=== PATIENT | female | born 1975 | race Caucasian/White ===

== ENCOUNTER 2022-11-02 10:30 | Outpatient (RCR) | payer OTHER, SELFPAY ==
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
--- NOTE | 2022-09-22 10:28 | OPREHPOC ---
Outpatient Therapy Plan of Care This is a Multidisciplinary Plan of Care that may contain components documented by all disciplines (PT, OT, and ST.) PT Goal 1 Goal Pt will be independent in HEP Target Visit 8 PT Goal 2 Goal Pt will verbalize understanding of diagnosis and prognosis Target Visit 8 PT Problem 2 PT Problem #2 Pain PT Goal 1 Goal Pt will report greatest pain level at 5/10 or less Target Visit 10 PT Goal 2 Goal Pt will report resolution of pain Target Visit 24 PT Problem 3 PT Problem #3 Impaired Gait PT Goal 1 Goal Pt will demo equal stance time on each LE Target Visit 10 PT Goal 2 Goal Pt will demo ability to ambulate without forward flexion at trunk Target Visit 24 PT Problem 4 PT Problem #4 Impaired Strength PT Goal 1 Goal Pt will demo equal strength RLE and LLE in all tested planes Target Visit 16 PT Goal 2 Goal Pt will demo strength of 4/5 in all tested planes Target Visit 24 PT Problem 5 PT Problem #5 Impaired Range of Motion PT Goal 1 Goal Left hip Passive ROM will demo neutral alignment in 90/90 position Target Visit 10 PT Goal 2 Goal Left hip Passive ROM internal rotation in 90/90 will be 10 degrees or greater Target Visit 24
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
--- NOTE | 2022-10-12 11:43 | PCPTNOTE ---
Patient called & cancelled scheduled appointment this date due to being called into work
--- NOTE | 2022-10-14 15:05 | PCPTNOTE ---
Patient called & cancelled scheduled appointment this date due to having fallen asleep. Will reschedule this week pending clinic availability.
--- NOTE | 2022-10-15 16:41 | PTOPPROG ---
Assessment and note entered by Holly Sanchez, PT Evaluation Information Assessment Status Progress Diagnosis low back pain unspecified Therapy conditions left hip stiffness, weakness, oth abnormalities of gait and mobility, abnormal posture Onset 07/21/2022 Subjective Information Pt reports sleeping is great Feels more flexibility after last session After sitting in car has pain in the hip that works itself out with walking. Getting up and down from toilet is getting better, but still uses trash can to assist in getting up. Assessment PT Clinical Summary Pt has reports pain has improved in both lower back and hip and recently feels like she is more flexible after last session. Pt demos improved ROM , and strength as well as alignment in standing. She has met part of her goals including short term goals for pain and knowledge. She has yet to meet all goals, and while shows improving ROM of the left hip, is still less than her rigth hip. Thus patient will benefit from cont therapy to address deficits and improve pain and function. Plan of Care Interventions Electrical Stimulation,Gait Training,Hot Pack/Cold Pack,Manual Therapy,Neuro Re-education,Patient/ Caregiver Educati,Prosthetic Training,Therapeutic Activities,Therapeutic Exercise,Ultrasound PT Services Indicated Yes Treatment Frequency and Cont 1-2x weekly x 4 weeks Duration These treatments will address the objective and functional deficits as defined above. The patient will be advanced safely and appropriately in order for the patient to progress towards his/her prior level of function. Additional exercises will be introduced and as well as a comprehensive home exercise program upon discharge, if needed, ?to ensure carryover of functional gains achieved in the clinic. This treatment plan has been reviewed and agreement upon by the patient.
--- NOTE | 2022-11-04 10:48 | PCPTNOTE ---
Patient called & cancelled scheduled appointment this date due to son being home sick and us unable to attend therapy today.
--- NOTE | 2022-11-09 10:26 | PTOPDC ---
Assessment and note entered by Holly Sanchez, PT Assessment Status Discharge - Pt Not Present Diagnosis low back pain unspecified, left hip pain Onset 07/21/2022 Subjective Information Pt reports sleeping is great Feels more flexibility after last session After sitting in car has pain in the hip that works itself out with walking. Getting up and down from toilet is getting better, but still uses trash can to assist in getting up. Assessment PT Clinical Summary Pt recieved x-ray and called to discuss findings with therapist. Findings of severe osteoarthritis to left hip joint. Pt initial pain from SI joint had improved and was resovled at times however significant pain and restriction on left hip continued. Discussed options and next level of care with ortho referral. Thus patient is being discharged from therapy at this time for max benefit being met currently.
== END 2022-11-09 11:23 | disposition home or self-care (01) ==
LOC: ANHHIPT 10:30
PROVIDERS: Visit Provider Nurse Practitioner Family
DX: M54.50 Low back pain, unspecified (principal)
CPT/HCPCS: 97014; 97110; 97112; 97140; 97162; 97750; G0283

== ENCOUNTER 2023-05-07 16:14 | Inpatient (IN) | payer MEDICAID, SELFPAY ==
[2023-05-07] VITALS (34 sets, daily range): BP systolic 112–128; BP diastolic 77–87; PULSE 72–89; RESP 8–21; TEMP 35.8; O2SAT 95–100
--- NOTE | ~2023-05-07 | XR_ITS ---
EXAMINATION: XR chest 1V INDICATION: Pain after fall TECHNIQUE: AP view of the chest is obtained. COMPARISON: None available FINDINGS: The lungs are free of acute opacities. No pleural effusion or pneumothorax. The cardiomedia stinal silhouette is normal. The visualized bones and soft tissues are unremarkable. IMPRESSION: 1. No acute cardiopulmonary abnormality. Reviewed, dictated and finalized at location F.
--- NOTE | ~2023-05-07 | XR_ITS ---
XR surgery orthopedic 05/09/2023 10:35 Indication: Internal fixation of left femoral fracture Procedure: 2 4 fluoroscopic views left hip. 167 seconds fluoroscopy. Comparison: 05/07/2023 Findings: Status post internal fixation of left femoral intertrochanteric fracture with dynamic compr ession screw and intramedullary virgen. There is a single distal interlocking screw. Fracture fragments in anatomic alignment post reduction. Impression: 1: Anatomic alignment of left femoral intertrochanteric fracture status post intraoperative fixation. Reviewed, dictated and finalized at location A. Impression: 1: Anatomic alignment of left femoral intertrochanteric fracture status post in traoperative fixation.
--- NOTE | ~2023-05-07 | XR_ITS ---
EXAMINATION: XR hip LT 2V w AP pelvis INDICATION: Left hip pain, initial encounter TECHNIQUE: AP view of the pelvis and two views of the left hip are obtained. COMPARISON: 10/30/2022 FINDINGS: There is an acute, comminuted, intertrochanteric fracture of the left femur. There is sever e osteoarthritis of the left hip. There is moderate osteoarthritis of the right hip. An IUD is noted. IMPRESSION: 1. Comminuted intertrochanteric fracture of the left femur. 2. Severe left hip osteoarthritis. Reviewed, dictated and finalized at location F.
--- NOTE | 2023-05-07 16:24 | ED.FALL ---
HPI - Fall General Chief Complaint: Fall <BRAIN Dupont Last Filed: 05/07/23 20:27> Stated Complaint: LEFT HIP PAIN <BRAIN Dupont Last Filed: 05/07/23 20:27> Time Seen by Provider: 05/07/23 16:24 <Sun Mccarty PA-C - Last Filed: 05/07/23 20:27> Source: patient <BRAIN Dupont Last Filed: 05/07/23 20:27> Mode of arrival: EMS <BRAIN Dupont Last Filed: 05/07/23 20:27> Limitations: no limitations <BRAIN Dupont Last Filed: 05/07/23 20:27> History of Present Illness HPI Narrative: Patient is a 47-year-old female who presents the ED via EMS with report of left hip pain. Patient reports she was playing with her son when she tripped on a rug and fell and landed on her left side. She complains of pain to her left hip. She was unable to get up off the ground or ambulate without severe pain in her left hip. EMS was then called. Patient has previously been evaluated for left hip osteoarthritis in November 2022 and told she needed a left hip replacement. Denies numbness or tingling. Denies any other injuries. She has not taken anything for pain and does not want anything currently. <BRAIN Dupont Last Filed: 05/07/23 20:27> Related Data Home Medications: Home Medications Medication Instructions Recorded Confirmed calcium carbonate-vitamin D2 2 tab-cap PO DAILY 12/21/22 05/08/23 [Calcium with Vitamin D] ibuprofen 200 mg tablet 1,200 mg PO DAILY PRN Pain (Scale 05/08/23 05/08/23 Score 1-3) naproxen sodium 220 mg tablet 1,320 mg PO DAILY PRN Pain (Scale 05/08/23 05/08/23 (Aleve) Score 4-6) <BRAIN Dupont Last Filed: 05/07/23 20:27> Allergies/Adverse Reactions: Allergies Allergy/AdvReac Type Severity Reaction Status Date / Time Sulfa (Sulfonamide Allergy Other Verified 05/07/23 17:57 Antibiotics) <Sun Mccarty PA-C - Last Filed: 05/07/23 20:27> Review of Systems Review of Systems: CONSTITUTIONAL: Denies fever, chills, or sweats. MUSCULOSKELETAL: See HPI. NEUROLOGIC: Denies headache, dizziness, numbness, or weakness. <Sun Mccarty PA-C - Last Filed: 05/07/23 20:27> All systems reviewed & are unremarkable except as noted in HPI and below <Sun Mccarty PA-C - Last Filed: 05/07/23 20:27> [facility] Past Medical History Medical History: Medical History (Updated 05/08/23 @ 02:20 by Diana Tello MD) Depression <Sun cMcarty PA-C - Last Filed: 05/07/23 20:27> Family History Family History: Family History (Updated 05/08/23 @ 01:05 by Maria Elena Grimm RN) Father Thyroid disorder Sibling Diabetes mellitus Heart disease Hypertension Thyroid disorder <Sun Mccarty PA-C - Last Filed: 05/07/23 20:27> Social History Social History: Social History (Updated 05/07/23 @ 19:52 by Sun Mccarty PA-C) Smoking packs per day: 0.5 Smoking cigarettes per day: 10.0 Smoking status: Current every day smoker Tobacco type: cigarettes Alcohol intake: current Drinks per week: 1 Alcohol use details: social Substance use: never Substance use type: does not use Do You Feel Safe in your Home?: Yes Lack of Transportation: No Lack of Food: Never True Current Housing: I Have Housing Concerned About Future Housing: No Difficulty Paying Gas/Electric Bills: No Difficulty Paying for Meds: No Currently Unemployed: No Education: Associate Degree Difficulty w/ Childcare or Family Care: No Living arrangements: with family Occupation/Education: occupation 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 H
[2023-05-07] MEDS: KETOROLAC 30 MG/ML VIAL (*BKC) IV PUSH (18:22)
[2023-05-07] MEDS: ACETAMINOPHEN 500 MG TABLET 1000 MG PO (18:22)
--- NOTE | 2023-05-07 19:37 | ECG_ITS ---
Measurements Intervals Solomon Rate: 78 P: 49 MN: 153 QRS: -15 QRSD: 93 T: 13 QT: 382 QTc: 435 Interpretive Statements SINUS RHYTHM BORDERLINE T WAVE ABNORMALITY- INFERIOR LEADS BASELINE ARTIFACT- I, II, III, AVR, AVL, AVF, V1-V2 BORDERLINE ECG NO PREVIOUS ECG AVAILABLE FOR COMPARISON Electronically Signed On 05-07-2023 20:10:32 CDT by Juan Francisco Cortes D.O.
[2023-05-07] MEDS: MORPHINE SULFATE (*CRX) 4 MG/ML INJ IV PUSH ×2 (19:55→22:03)
[2023-05-07] MEDS: ONDANSETRON INJ 4 MG/2 ML VIAL IV PUSH (19:55)
[2023-05-07 20:19] LABS: Basophils Absolute Auto 0.1 K/mm3 (0.0-0.1); Basophils Percent Auto 0.8 % (0.2-1.2); Eosinophils Absolute Auto 0.1 K/mm3 (0-0.3); Eosinophils Percent Auto 0.6 % (0-4.4); Hematocrit 41.3 % (37.0-47.0); Hemoglobin 14.3 g/dL (12.0-15.0); Immature Granulocyte Absolute 0.08 K/mm3 (0.00-0.031); Immature Granulocyte Percent A 0.6 % (0-0.5); Lymphocytes Absolute Auto 1.91 K/mm3 (0.9-3.2); Lymphocytes Percent Auto 15.4 % (18.3-44.2); Mean Corpuscular HGB Conc 34.6 g/dl (32-36); Mean Corpuscular Hemoglobin 35.5 pg (26-34); Mean Corpuscular Volume 102.5 fl (80-100); Mean Platelet Volume 10.2 fl (7.4-10.4); Monocytes Absolute Auto 0.8 K/mm3 (0.1-0.6); Monocytes Percent Auto 6.8 % (2.6-8.5); Neutrophils Absolute Auto 9.4 K/mm3 (1.3-6.7); Neutrophils Percent Auto 75.8 % (45.5-73.1); Platelet Count Result 303 k/mm3 (150-375); Red Blood Count 4.03 M/mm3 (4.2-5.4); White Blood Count 12.4 K/mm3 (4.5-10.0)
[2023-05-07 20:30] LABS: INR 1.1; Partial Thromboplastin Time 26.6 Seconds (22.3-36.8); Prothrombin Time 14.6 Seconds (11.1-14.7)
[2023-05-07 20:34] LABS: Alanine Aminotransferase 33 U/L (6-35); Albumin Level 4.2 g/dL (3.5-5.1); Alkaline Phosphatase 71 U/L (38-126); Anion Gap 6 mmol/L (8-16); Aspartate Amino Transferase 51 U/L (14-36); Bilirubin,Total 0.5 mg/dL (0.2-1.3); Blood Urea Nitrogen 16 mg/dL (7-17); Calcium 9.1 mg/dL (8.4-10.2); Carbon Dioxide 22 mmol/L (22-30); Chloride 107 mmol/L (98-107); Estimated CRCL calculation 145 ml/min; Estimated Glomerular Filt Rate > 60; Glucose 113 mg/dL (65-110); Potassium 4.3 mmol/L (3.4-5.0); Sodium 135 mmol/L (137-145)
[2023-05-07 21:49] LABS: Appearance Urine Cloudy (Clear); Bacteria Urine 4+ /hpf; Bilirubin Urine Negative (Negative); Blood Urine Non-Hemolyzed Trace (Negative); Color Urine Yellow (Yellow); Glucose Urine UA Negative (Negative); Ketones Urine Negative (Negative); Leukocyte Esterase Ur 3+ LEU/UL (Negative); Nitrate Urine Positive (Negative); Protein Urine Negative (Negative); Specific Grav Ur 1.013 (1.001-1.035); Squamous Epithelial Cell Urine Moderate /hpf (Few); Urobilinogen Urine 0.2 mg/dL (<2.0); WBC Urine >100 /hpf (0-3)
[2023-05-07 21:57] LABS: Add Urine Microscopic? YES
--- NOTE | 2023-05-07 22:33 | PM.IMHP ---
H&P: HPI History of Present Illness Date/Time: 05/07/23 22:33 Chief Complaint: fall Narrative: this is a 47-year-old female with no significant past medical history, tobacco dependence. Patient was brought to emergency room via EMS after having a fall at home while playing with son who is 13 years old mechanical fall ground level patient tripped over a rug unable to bear weight on left lower extremity tried to get up for an hour and half before calling EMS. Here preliminary workup was significant for fracture of the hip on the left side a urinalysis was significant for numerous WBCs present. patient is being admitted for further evaluation management and treatment. EXAMINATION: XR hip LT 2V w AP pelvis INDICATION: Left hip pain, initial encounter TECHNIQUE: AP view of the pelvis and two views of the left hip are obtained. COMPARISON: 10/30/2022 FINDINGS: There is an acute, comminuted, intertrochanteric fracture of the left femur. There is severe osteoarthritis of the left hip. There is moderate osteoarthritis of the right hip. An IUD is noted. IMPRESSION: 1. Comminuted intertrochanteric fracture of the left femur. 2. Severe left hip osteoarthritis. EXAMINATION: XR chest 1V INDICATION: Pain after fall TECHNIQUE: AP view of the chest is obtained. COMPARISON: None available FINDINGS: The lungs are free of acute opacities. No pleural effusion or pneumothorax. The cardiomediastinal silhouette is normal. The visualized bones and soft tissues are unremarkable. IMPRESSION: 1. No acute cardiopulmonary abnormality. Review of Systems Review of Systems: Fall, pain upon weight-bearing of the left leg Constitutional: Constitutional: Denies chills, Denies fever(s), Denies malaise, Denies night sweats and Denies weakness Eyes: Eyes: Denies change in vision ENT: Denies dysphagia, Denies vertigo, Denies dizziness, Denies nasal congestion, Denies nasal discharge and Denies odynophagia Cardiovascular: Cardiovascular: Denies chest pain, Denies radiating jaw, neck or arm pain and Denies palpitations Respiratory: Respiratory: Denies cough Gastrointestinal: Gastrointestinal: Denies abdominal pain, Denies diarrhea, Denies nausea and Denies vomiting Genitourinary: Genitourinary: Denies dysuria Musculoskeletal: Musculoskeletal: Reports arthralgias ( left hip) and Reports limited range of motion Integumentary/Breasts: Skin/Breast: Denies rash Neurologic: Denies focal weakness and Denies Sensory deficit (Neuro) Psychiatric: Psychiatric: Reports no additional psychiatric complaints and Reports as per HPI Endocrine: Endocrine: Denies cold intolerance, Denies fatigue, Denies flushing, Denies heat intolerance, Denies polyphagia, Denies polydipsia and Denies palpitations Hematologic/Lymphatic: Hematologic/Lymphatic: Reports no additional hematologic/lymphatic complaints and Reports as per HPI Allergic/Immunologic: Allergic/Immunologic: Reports no additional allergic/immunologic complaints and Reports as per HPI PMFSH Past Medical History Medical History (Updated 05/08/23 @ 02:20 by Diana Tello MD) Depression Family History Family History (Updated 05/08/23 @ 01:05 by Maria Elena Grimm RN) Father Thyroid disorder Sibling Diabetes mellitus Heart disease Hypertension Thyroid disorder Social History Social History (Updated 05/07/23 @ 19:52 by Sun Mccarty PA-C) Smoking packs per day: 0.5 Smoking cigarettes per day: 10.0 Smoking status: Current every day smoker Tobacco type: cigarettes Alcohol intake: current Drinks per week: 1 Alcohol use details: social Substance use: never Substance use type: does not use Do You Feel Safe in your Home?: Yes Lack of Transportation: No Lack of Food: Never True Current Housing: I Have Housing Concerned About Future Housing: No Difficulty Paying Gas/Electric Bills: No Difficulty Paying for Meds: No Currently Unemployed: N
--- NOTE | 2023-05-07 22:42 | PC.NURSE ---
Rocephin held until blood cultures drawn.
[2023-05-08] VITALS: PULSE 70; RESP 16
--- NOTE | 2023-05-08 00:50 | ADMGEN ---
This patient, Gracie Taylor, was admitted to Medical Room 252-01. Patient/family oriented to hospital policies and general routines including ID bracelet, bed and alarms, visiting hours, pain management, procedures, bathroom and other care routines, personal items, smoking policy, room service/diet, and visiting hours. Information on how to activate the Rapid Response Team has been discussed. Patient/Family are encouraged to report perceived risks to care and to ask questions if they do not understand what they are told or what they should do.
[2023-05-08 00:52] VITALS: BP 128/76; PULSE 76; RESP 16; TEMP 36.7; O2SAT 100; BMI 31.3
[2023-05-08] MEDS: HYDROmorphone HCL INJ (*CRX) 1 MG/ML SYR IV PUSH ×7 (01:38→23:47)
[2023-05-08 03:25] VITALS: BP 123/68; PULSE 77; RESP 16; TEMP 36.5; O2SAT 99
--- NOTE | 2023-05-08 08:38 | P.PNIM_ITS ---
Progress Note: A&P Assessment and Plan (1) Acute UTI: Code(s): N39.0 - Urinary tract infection, site not specified Status: Acute (2) Intertrochanteric fracture of left femur: Qualifiers: Encounter type: initial encounter Fracture alignment: nondisplaced Fracture type: closed Qualified Code(s): S72.145A - Nondisplaced intertrochanteric fracture of left femur, initial encounter for closed fracture Code(s): S72.142A - Displaced intertrochanteric fracture of left femur, initial encounter for closed fracture Status: Acute (3) Tobacco dependence: Code(s): F17.200 - Nicotine dependence, unspecified, uncomplicated Status: Acute (4) Fall from ground level: Code(s): W18.30XA - Fall on same level, unspecified, initial encounter Status: Acute Plan LT intertrochanteric femur fracture * Secondary to fall and severe OA * Ortho consulted * Pain management * NPO * surgery 05/08 UTI * Urine cultures pending * Continue IV hydration. * Monitor vital signs. * Rocephin Vitamin Deficiency * Resume home vitamin D * Vitamin D WNL Smoking * smoking cessation education * nicotine patch daily * remove at night * recommend prescription for nicotine patches at discharge Code status: Full code per patient DVT prophylaxis: SCD until after surgery Stress ulcer prophylaxis: Protonix 40 daily PT/OT notes: Bedrest until after surgery or ortho recommendation Disposition: Patient admitted to the medical unit for treatment of LT femur fracture, treatment per ortho. Time Spent With Patient Time with patient: 15 - 25 minutes Subjective Date/time seen: 05/08/23 08:38 Interval history: Medical Record: Chief Complaint: fall Narrative: ?this is a 47-year-old female with? no significant past medical history, tobacco dependence.? Patient was brought to emergency room via EMS after having a fall at home while playing with son who is 13 years old mechanical fall ground level patient tripped over a rug unable to bear weight on left lower extremity tried to get up for an hour and half before calling EMS.? Here preliminary workup was significant for fracture of the hip? on the left side a urinalysis was significant for numerous WBCs present. patient is being admitted for further e valuation management and treatment. 05/07: Patient with some mild anxiety but reports pain is controlled, nance in place. Labs unremarkable and vitals stable plan is for surgery in the am. Review of Systems Review of Systems: All systems reviewed & are unremarkable except as noted in HPI and below Exam Narrative: Physical Exam: * GENERAL: Alert and oriented x 3. No acute distress. Well-nourished. * EYES: EOMI. No scleral icterus. PERRLA. * HEENT: Moist mucous membranes. No cervical lymphadenopathy. * LUNGS: Clear to auscultation bilaterally. No accessory muscle use. * CARDIOVASCULAR: Regular rate and rhythm. No murmur. No JVD. S1-S2 * ABDOMEN: Soft, mild tenderness and non-distended. No palpable masses. * EXTREMITIES: Pain LLE neurovascular intact * SKIN: No rashes or lesions. Skin warm, dry. * NEUROLOGIC: No focal neurological deficits. CN II-XII grossly intact * PSYCHIATRIC: Appropriate mood and affect. Good judgement and insight. No visual or auditory hallucinations. No suicidal or homicidal ideation. Objective Data Vital Signs Vital Signs:
--- NOTE | 2023-05-08 08:38 | PM.IMPN ---
Progress Note: A&P Assessment and Plan (1) Acute UTI: Code(s): N39.0 - Urinary tract infection, site not specified Status: Acute (2) Intertrochanteric fracture of left femur: Qualifiers: Encounter type: initial encounter Fracture alignment: nondisplaced Fracture type: closed Qualified Code(s): S72.145A - Nondisplaced intertrochanteric fracture of left femur, initial encounter for closed fracture Code(s): S72.142A - Displaced intertrochanteric fracture of left femur, initial encounter for closed fracture Status: Acute (3) Tobacco dependence: Code(s): F17.200 - Nicotine dependence, unspecified, uncomplicated Status: Acute (4) Fall from ground level: Code(s): W18.30XA - Fall on same level, unspecified, initial encounter Status: Acute Plan LT intertrochanteric femur fracture Secondary to fall and severe OA Ortho consulted Pain management NPO surgery 05/08 UTI Urine cultures pending Continue IV hydration. Monitor vital signs. Rocephin Vitamin Deficiency Resume home vitamin D Vitamin D WNL Smoking smoking cessation education nicotine patch daily remove at night recommend prescription for nicotine patches at discharge Code status: Full code per patient DVT prophylaxis: SCD until after surgery Stress ulcer prophylaxis: Protonix 40 daily PT/OT notes: Bedrest until after surgery or ortho recommendation Disposition: Patient admitted to the medical unit for treatment of LT femur fracture, treatment per ortho. Time Spent With Patient Time with patient: 15 - 25 minutes Subjective Date/time seen: 05/08/23 08:38 Interval history: Medical Record: Chief Complaint: fall Narrative: ?this is a 47-year-old female with? no significant past medical history, tobacco dependence.? Patient was brought to emergency room via EMS after having a fall at home while playing with son who is 13 years old mechanical fall ground level patient tripped over a rug unable to bear weight on left lower extremity tried to get up for an hour and half before calling EMS.? Here preliminary workup was significant for fracture of the hip? on the left side a urinalysis was significant for numerous WBCs present. patient is being admitted for further evaluation management and treatment. 05/07: Patient with some mild anxiety but reports pain is controlled, nance in place. Labs unremarkable and vitals stable plan is for surgery in the am. Review of Systems Review of Systems: All systems reviewed & are unremarkable except as noted in HPI and below Exam Narrative: Physical Exam: GENERAL: Alert and oriented x 3. No acute distress. Well-nourished. EYES: EOMI. No scleral icterus. PERRLA. HEENT: Moist mucous membranes. No cervical lymphadenopathy. LUNGS: Clear to auscultation bilaterally. No accessory muscle use. CARDIOVASCULAR: Regular rate and rhythm. No murmur. No JVD. S1-S2 ABDOMEN: Soft, mild tenderness and non-distended. No palpable masses. EXTREMITIES: Pain LLE neurovascular intact SKIN: No rashes or lesions. Skin warm, dry. NEUROLOGIC: No focal neurological deficits. CN II-XII grossly intact PSYCHIATRIC: Appropriate mood and affect. Good judgement and insight. No visual or auditory hallucinations. No suicidal or homicidal ideation. Objective Data Vital Signs Vital Signs: Vital Signs - 24 hr 05/07/23 16:20 05/07/23 17:55 05/07/23 17:56 Temperature 96.4 F L Pulse Rate 81 84 85 Respiratory Rate 18 14 21 H Blood Pressure 125/83 128/86 Pulse Oximetry 100 100 100 Oxygen Delivery Room Air 05/07/23 18:00 05/07/23 18:01 05/07/23 18:02 Temperature Pulse Rate 81 79 81 Respiratory Rate 17 17 20 Blood Pressure 124/87 Pulse Oximetry 100 100 96 Oxygen Delivery 05/07/23 18:15 05/07/23 18:23 05/07/23 19:00 Temperature Pulse Rate 79 84 Respiratory Rate 8 L 19 Blood Pressure 123/82 Puls
[2023-05-08 09:15] LABS: Basophils Absolute Auto 0.1 K/mm3 (0.0-0.1); Basophils Percent Auto 0.8 % (0.2-1.2); Eosinophils Absolute Auto 0.2 K/mm3 (0-0.3); Eosinophils Percent Auto 2.3 % (0-4.4); Hematocrit 37.9 % (37.0-47.0); Hemoglobin 12.8 g/dL (12.0-15.0); Immature Granulocyte Absolute 0.02 K/mm3 (0.00-0.031); Immature Granulocyte Percent A 0.3 % (0-0.5); Lymphocytes Absolute Auto 1.79 K/mm3 (0.9-3.2); Lymphocytes Percent Auto 27.7 % (18.3-44.2); Mean Corpuscular HGB Conc 33.8 g/dl (32-36); Mean Corpuscular Hemoglobin 35.8 pg (26-34); Mean Corpuscular Volume 105.9 fl (80-100); Mean Platelet Volume 10.4 fl (7.4-10.4); Monocytes Absolute Auto 0.8 K/mm3 (0.1-0.6); Monocytes Percent Auto 11.6 % (2.6-8.5); Neutrophils Absolute Auto 3.7 K/mm3 (1.3-6.7); Neutrophils Percent Auto 57.3 % (45.5-73.1); Platelet Count Result 227 k/mm3 (150-375); Red Blood Count 3.58 M/mm3 (4.2-5.4); Red Cell Distribution Width 11.9 % (11.5-14.5); White Blood Count 6.5 K/mm3 (4.5-10.0)
[2023-05-08 09:29] LABS: Alanine Aminotransferase 27 U/L (6-35); Albumin Level 3.6 g/dL (3.5-5.1); Alkaline Phosphatase 69 U/L (38-126); Anion Gap 0 mmol/L (8-16); Aspartate Amino Transferase 32 U/L (14-36); Blood Urea Nitrogen 16 mg/dL (7-17); Calcium 8.7 mg/dL (8.4-10.2); Carbon Dioxide 27 mmol/L (22-30); Chloride 107 mmol/L (98-107); Estimated CRCL calculation 167 ml/min; Estimated Glomerular Filt Rate > 60; Glucose 109 mg/dL (65-110); Potassium 3.7 mmol/L (3.4-5.0); Sodium 134 mmol/L (137-145)
[2023-05-08 10:07] VITALS: BP 124/72; PULSE 84; RESP 16; TEMP 36; O2SAT 100
[2023-05-08 12:03] LABS: Vitamin D 25 Hydroxy 28.4 ng/mL
--- NOTE | 2023-05-08 13:39 | PM.CNOR ---
Assessment and Plan Assessment and plan (1) Intertrochanteric fracture of left femur: Qualifiers: Encounter type: initial encounter Fracture alignment: nondisplaced Fracture type: closed Qualified Code(s): S72.145A - Nondisplaced intertrochanteric fracture of left femur, initial encounter for closed fracture Code(s): S72.142A - Displaced intertrochanteric fracture of left femur, initial encounter for closed fracture Status: Acute Assessment and Plan: RIVAS HAS A DISPLACED AND COMMINUTED LEFT INTERTROCHANTERIC HIP FRACTURE AND SEVERE DJD TO THE LEFT HIP JOINT.? SHE WILL REQUIRE INSERTION OF DULCE WITH HIP SCREW LEFT FEMUR.? SHE WILL START DVT PROPHYLAXIS AFTER SURGERY. WE WILL SCHEDULE SURGERY FOR SOME TIME TOMORROW IF SHE IS CLEARED BY INTERNAL MEDICINE. HISTORY, EXAM AND RADIOGRAPHS REVIEWED WITH THE PATIENT. REFERRING PHYSICIAN RECORDS AND IMAGES REVIEWED. CONDITION, NATURE, ETIOLOGY AND COURSE OF NATURAL HISTORY REVIEWED. CONSERVATIVE AND OPERATIVE TREATMENT OPTIONS REVIEWED WELL THE RISKS AND BENEFITS OF EACH. DISCUSSED NONOPERATIVE AND OPERATIVE TREATMENT OPTIONS WITH THE PATIENT. THE PATIENT'S QUESTIONS WERE ANSWERED. THE PATIENT DESIRES OPERATIVE TREATMENT. DISCUSSED ____INSERTION OF INTRAMEDULLARY NAIL LEFT HIP . RISKS OF SURGERY INCLUDING BUT NOT LIMITED TO NEUROVASCULAR DAMAGE, WOUND COMPLICATIONS, BLOOD CLOT, PULMONARY EMBOLUS, STROKE, MA, ANESTHETIC RISKS UP TO AND INCLUDING WERE REVIEWED. CONTINUED PAIN AND POSSIBLE DYSFUNCTION WERE EXPLAINED. NO GUARANTEES WERE OFFERED. THE PATIENT UNDERSTANDS AND SHE WISHES TO PROCEED. History of Present Illness HPI Consult date: 05/08/23 Chief complaint: Lt Femur Intertrochanteric Fracture Narrative: RIVAS IS HERE FOR EVALUATION OF HER LEFT HIP PAIN. SHE WAS PLAYING WITH HER CHILD AND FELL ONTO HER LEFT SIDE. SHE HAD PAIN AND WAS UNABLE TO GET UP. SHE WAS TRANSFERRED TO [facility] FOR EVALUATION. SHE DENIES ANY NECK BACK OR ANY OTHER EXTREMITY PAIN ASIDE FROM THE LEFT HIP. HISTORY, EXAM AND RADIOGRAPHS REVIEWED WITH THE PATIENT. REFERRING PHYSICIAN RECORDS AND IMAGES REVIEWED. CONDITION, NATURE, ETIOLOGY AND COURSE OF NATURAL HISTORY REVIEWED. CONSERVATIVE AND OPERATIVE TREATMENT OPTIONS REVIEWED WELL THE RISKS AND BENEFITS OF EACH. Review of Systems Review of Systems: All systems reviewed & are unremarkable except as noted in HPI and below PMFSH Past Medical History Medical History Depression Family History Family History Father Thyroid disorder Sibling Diabetes mellitus Heart disease Hypertension Thyroid disorder Social History Social History Smoking packs per day: 0.5 Smoking cigarettes per day: 10.0 Smoking status: Current every day smoker Tobacco type: cigarettes Alcohol intake: current Drinks per week: 1 Alcohol use details: social Substance use: never Substance use type: does not use Do You Feel Safe in your Home?: Yes Lack of Transportation: No Lack of Food: Never True Current Housing: I Have Housing Concerned About Future Housing: No Difficulty Paying Gas/Electric Bills: No Difficulty Paying for Meds: No Currently Unemployed: No Education: Associate Degree Difficulty w/ Childcare or Family Care: No Living arrangements: with family Occupation/Education: occupation 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
[2023-05-08 13:53] VITALS: BP 117/73; PULSE 71; RESP 16; TEMP 37.1; O2SAT 96
[2023-05-08] MEDS: ONDANSETRON INJ 4 MG/2 ML VIAL IV PUSH (15:50)
[2023-05-08 20:24] VITALS: BP 129/84; PULSE 83; RESP 16; TEMP 36.4; O2SAT 99
[2023-05-09] VITALS (13 sets, daily range): BP systolic 125–143; BP diastolic 59–90; PULSE 76–103; RESP 12–20; TEMP 36.1–36.6; O2SAT 95–100
[2023-05-09] MEDS: HYDROmorphone HCL INJ (*CRX) 1 MG/ML SYR IV PUSH (03:17)
[2023-05-09 06:01] LABS: Basophils Absolute Auto 0.1 K/mm3 (0.0-0.1); Basophils Percent Auto 0.9 % (0.2-1.2); Eosinophils Absolute Auto 0.2 K/mm3 (0-0.3); Eosinophils Percent Auto 2.7 % (0-4.4); Hematocrit 37.2 % (37.0-47.0); Hemoglobin 12.1 g/dL (12.0-15.0); Immature Granulocyte Absolute 0.02 K/mm3 (0.00-0.031); Immature Granulocyte Percent A 0.4 % (0-0.5); Lymphocytes Absolute Auto 1.63 K/mm3 (0.9-3.2); Lymphocytes Percent Auto 29.5 % (18.3-44.2); Mean Corpuscular HGB Conc 32.5 g/dl (32-36); Mean Corpuscular Hemoglobin 35.1 pg (26-34); Mean Corpuscular Volume 107.8 fl (80-100); Mean Platelet Volume 11.2 fl (7.4-10.4); Monocytes Absolute Auto 0.7 K/mm3 (0.1-0.6); Monocytes Percent Auto 12.1 % (2.6-8.5); Neutrophils Percent Auto 54.4 % (45.5-73.1); Platelet Count Result 218 k/mm3 (150-375); Red Blood Count 3.45 M/mm3 (4.2-5.4); Red Cell Distribution Width 11.8 % (11.5-14.5); White Blood Count 5.5 K/mm3 (4.5-10.0)
[2023-05-09 06:22] LABS: Alanine Aminotransferase 22 U/L (6-35); Albumin Level 3.6 g/dL (3.5-5.1); Alkaline Phosphatase 65 U/L (38-126); Anion Gap 3 mmol/L (8-16); Aspartate Amino Transferase 26 U/L (14-36); Bilirubin,Total 0.9 mg/dL (0.2-1.3); Blood Urea Nitrogen 10 mg/dL (7-17); Calcium 8.9 mg/dL (8.4-10.2); Carbon Dioxide 28 mmol/L (22-30); Chloride 103 mmol/L (98-107); Estimated CRCL calculation 137 ml/min; Estimated Glomerular Filt Rate > 60; Glucose 102 mg/dL (65-110); Potassium 3.7 mmol/L (3.4-5.0); Sodium 134 mmol/L (137-145)
--- NOTE | 2023-05-09 07:22 | PM.IMPN ---
Progress Note: A&P Assessment and Plan (1) Acute UTI: Code(s): N39.0 - Urinary tract infection, site not specified Status: Acute (2) Intertrochanteric fracture of left femur: Qualifiers: Encounter type: initial encounter Fracture alignment: nondisplaced Fracture type: closed Qualified Code(s): S72.145A - Nondisplaced intertrochanteric fracture of left femur, initial encounter for closed fracture Code(s): S72.142A - Displaced intertrochanteric fracture of left femur, initial encounter for closed fracture Status: Acute (3) Tobacco dependence: Code(s): F17.200 - Nicotine dependence, unspecified, uncomplicated Status: Acute (4) Fall from ground level: Code(s): W18.30XA - Fall on same level, unspecified, initial encounter Status: Acute Plan LT intertrochanteric femur fracture Secondary to fall and severe OA Ortho consulted Pain management NPO surgery 05/08 PPI PT/OT post-op DVT coverage post-op 05/08: Post-op day one up to chair pull nance PT/OT DVT prophylactic UTI Urine cultures ECOLI Continue IV hydration. Monitor vital signs. Rocephin switched to macrobid PO Vitamin Deficiency Resume home vitamin D Vitamin D WNL Smoking smoking cessation education nicotine patch daily remove at night recommend prescription for nicotine patches at discharge Code status: Full code per patient DVT prophylaxis: SCD until after surgery Stress ulcer prophylaxis: Protonix 40 daily PT/OT notes: Bedrest until after surgery or ortho recommendation Disposition: Patient admitted to the medical unit for treatment of LT femur fracture, treatment per ortho. Surgery today will start PT/OT post-op Time Spent With Patient Time with patient: 15 - 25 minutes Subjective Date/time seen: 05/09/23 07:22 Interval history: Medical Record: Chief Complaint: fall Narrative: ?this is a 47-year-old female with? no significant past medical history, tobacco dependence.? Patient was brought to emergency room via EMS after having a fall at home while playing with son who is 13 years old mechanical fall ground level patient tripped over a rug unable to bear weight on left lower extremity tried to get up for an hour and half before calling EMS.? Here preliminary workup was significant for fracture of the hip? on the left side a urinalysis was significant for numerous WBCs present. patient is being admitted for further evaluation management and treatment. 05/07: Patient with some mild anxiety but reports pain is controlled, nance in place. Labs unremarkable and vitals stable plan is for surgery in the am. 05/08: Patient seen post-op up to chair and eating lunch tolerated procedure well. Incision clean dry and intact reports minimal pain at this time, PT/OT ordered. Review of Systems Review of Systems: All systems reviewed & are unremarkable except as noted in HPI and below Exam Narrative: Physical Exam: GENERAL: Alert and oriented x 3. No acute distress. Well-nourished. EYES: EOMI. No scleral icterus. PERRLA. HEENT: Moist mucous membranes. No cervical lymphadenopathy. LUNGS: Clear to auscultation bilaterally. No accessory muscle use. CARDIOVASCULAR: Regular rate and rhythm. No murmur. No JVD. S1-S2 ABDOMEN: Soft, mild tenderness and non-distended. No palpable masses. EXTREMITIES: Post-op incision clean dry intact neurovascular intact SKIN: No rashes or lesions. Skin warm, dry. NEUROLOGIC: No focal neurological deficits. CN II-XII grossly intact PSYCHIATRIC: Appropriate mood and affect. Good judgement and insight. No visual or auditory hallucinations. No suicidal or homicidal ideation. Objective Data Vital Signs Vital Signs: Vital Signs - 24 hr 05/08/23 10:07 05/08/23 13:53 05/08/23 09:00 Temperature 96.8 F L 98.8 F Pulse Rate 84 71 Respiratory Rate 16 16 Blood Pressure 124/72 117/73
--- NOTE | 2023-05-09 08:10 | PC.NURSE ---
Patient taken to surgery. Report given to Myra RADER
--- NOTE | 2023-05-09 08:27 | WPDHPUPDATE1 ---
History and Physical Update Update Date/Time: 05/09/23 08:27 History and Physical has been reviewed, including an updated exam of the patient. There are NO changes in the patient's condition. Risks, benefits, and alternatives have been discussed and questions answered. Patient agrees to proceed with procedure.
[2023-05-09] MEDS: LACTATED RINGERS 1,000 ML 30 ML IV CONT (08:30)
--- NOTE | 2023-05-09 08:30 | WPDANESEPPF ---
Anes - Initial Pre Proc Eval Procedure: Operation Date: 05/09/23 08:30 Proposed Procedures p IM Sidney Femur(Left) - Kalpesh Graham MD Date/Time: 05/09/23 08:30 Surgeon: Diana Tello MD Pre Op Diagnosis: Lt Femur Intertrochanteric Fracture Patient Data Age: 47 Gender: F Height: 1.73 m Weight: 93.5 kg Last Vital Signs Temp 36.2 C L 05/09/23 08:05 Pulse 78 05/09/23 08:05 Resp 16 05/09/23 08:05 BP 125/73 05/09/23 08:05 Pulse Ox 100 05/09/23 08:05 O2 Del Method Room Air 05/08/23 20:00 Allergies Allergy/AdvReac Type Severity Reaction Status Date / Time Sulfa (Sulfonamide Allergy Other Verified 05/07/23 17:57 Antibiotics) Home Medications Medication Instructions Recorded Confirmed Type calcium carbonate-vitamin D2 2 tab-cap PO DAILY 12/21/22 05/08/23 History [Calcium with Vitamin D] ibuprofen 200 mg tablet 1,200 mg PO DAILY PRN Pain (Scale 05/08/23 05/08/23 History Score 1-3) naproxen sodium 220 mg tablet 1,320 mg PO DAILY PRN Pain (Scale 05/08/23 05/08/23 History (Aleve) Score 4-6) Laboratory Tests 05/08/23 05/09/23 09:05 05:17 WBC 6.5 K/mm3 5.5 K/mm3 (4.5-10.0) (4.5-10.0) RBC 3.58 L M/mm3 3.45 L M/mm3 (4.2-5.4) (4.2-5.4) Hgb 12.8 g/dL 12.1 g/dL (12.0-15.0) (12.0-15.0) Hct 37.9 % 37.2 % (37.0-47.0) (37.0-47.0) MCV 105.9 H fl 107.8 H fl (80-100) (80-100) MCH 35.8 H pg 35.1 H pg (26-34) (26-34) MCHC 33.8 g/dl 32.5 g/dl (32-36) (32-36) RDW 11.9 % 11.8 % (11.5-14.5) (11.5-14.5) Plt Count 227 k/mm3 218 k/mm3 (150-375) (150-375) MPV 10.4 fl 11.2 H fl (7.4-10.4) (7.4-10.4) Immature Gran % (Auto) 0.3 % 0.4 % (0-0.5) (0-0.5) Neut % (Auto) 57.3 % 54.4 % (45.5-73.1) (45.5-73.1) Lymph % (Auto) 27.7 % 29.5 % (18.3-44.2) (18.3-44.2) Atkinson % (Auto) 11.6 H % 12.1 H % (2.6-8.5) (2.6-8.5) Eos % (Auto) 2.3 % 2.7 % (0-4.4) (0-4.4) Baso % (Auto) 0.8 % 0.9 % (0.2-1.2) (0.2-1.2) Lymph # (Auto) 1.79 K/mm3 1.63 K/mm3 (0.9-3.2) (0.9-3.2) Atkinson # (Auto) 0.8 H K/mm3 0.7 H K/mm3 (0.1-0.6) (0.1-0.6) Eos # (Auto) 0.2 K/mm3 0.2 K/mm3 (0-0.3) (0-0.3) Baso # (Auto) 0.1 K/mm3 0.1 K/mm3 (0.0-0.1) (0.0-0.1) Abs Immat Gran (auto) 0.02 K/mm3 0.02 K/mm3 (0.00-0.031) (0.00-0.031) Absolute Neuts (auto) 3.7 K/mm3 3.0 K/mm3 (1.3-6.7) (1.3-6.7) Absolute Nucleated RBC 0.000 K/mm3 0.000 K/mm3 (0.0-0.012) (0.0-0.012) Nucleated RBC % 0.0 % 0.0 % (0.0-0.2) (0.0-0.2) Sodium 134 L mmol/L 134 L mmol/L (137-145) (137-145) Potassium 3.7 mmol/L 3.7 mmol/L (3.4-5.0) (3.4-5.0) Chloride 107 mmol/L 103 mmol/L (98-107) (98-107) Carbon Dioxide 27 mmol/L 28 mmol/L (22-30) (22-30) Anion Gap 0 L mmol/L 3 L mmol/L (8-16) (8-16) BUN 16 mg/dL 10 D mg/dL (7-17) (7-17) Creatinine 0.40 L mg/dL 0.50 L mg/dL (0.7-1.0) (0.7-1.0) Estim Creat Clear Calc 167 ml/min 137 ml/min Estimated GFR > 60 > 60 (59 - ) (59 - ) Glucose 109 mg/dL 102 mg/dL (65-110) (65-110) Calcium 8.7 mg/dL 8.9 mg/dL (8.4-10.2) (8.4-10.2) Total Bilirubin 1.0 mg/dL 0.9 mg/dL (0.2-1.3) (0.2-1.3) AST 32 U/L 26 U/L (14-36) (14-36) ALT 27 U/L 22 U/L (6-35) (6-35) Alkaline Phosphatase 69 U/L 65 U/L (38-126) (38-126) Total Protein 6.0 L g/dL 6.0 L g/dL (6.3-8.2) (6.3-8.2) Albumin 3.6 g/dL 3.6 g/dL (3.5-5.1) (3.5-5.1) Vitamin D 25-Hydroxy 28.4 ng/mL Patient hx anesthesia problems: none Family hx anesthesia problems: none Results Review: All pre-operative results and documents have been reviewed as part of the pre-operative evaluation. [facility] Past Medical History Medical History Depression Obesity Smoker Family History Family History Father
[2023-05-09] MEDS: ceFAZolin 2 GM/D5W 50 ML 2 GM/50 ML BAG IVPB ×3 (08:36→20:38)
[2023-05-09] MEDS: TRANEXAMIC ACID 1,000MG/ISO100 1,000 MG/100 ML BAG 200 MG IVPB (08:45)
--- NOTE | 2023-05-09 09:48 | P.OP_ITS ---
Procedure Note - Detailed Date of Procedure 05/09/23 Pre-op Diagnosis Lt Femur Intertrochanteric Fracture Post-op Diagnosis Same Procedure Performed INSERTION FEMORAL DULCE LEFT HIP Surgeon Kalpesh Graham MD Anesthesia General Description of Procedure THE PATIENT WAS TAKEN TO THE OPERATING ROOM AND PLACED ON A FRACTURE TABLE AFTER GIVEN GENERAL ANESTHESIA. THE LEFT LOWER EXTREMITY WAS PLACED IN A TRACTION BOOT AND USING SOME TRACTION AND INTERNAL ROTATION THE INNER TROCHANTERIC FRACTURE WAS REDUCED TO ANATOMIC POSITION. NEXT THE LEFT LOWER EXTREMITY WAS PREPPED AND DRAPED IN THE STERILE FASHION. AN INCISION WAS MADE PROXIMAL TO THE TIP OF THE GREATER TROCHANTER AND DISSECTION CONTINUED TILL THE TIP OF THE GREATER TROCHANTER WAS PALPATED. A GUIDE PIN WAS PLACED DOWN THE FEMORAL CANAL AND PAST THE FRACTURE SITE. THIS WAS CHECKED ON FLUOROSCOPY AND FOUND TO BE IN GOOD POSITION. AN INITIAL REAMER WAS USED TO REAM THE FEMORAL CANAL. A 10 BY 210 MM ARTHREX DULCE WAS INSERTED TILL THE CORRECT POSITION WAS IDENTIFIED ON XRAY. A GUIDE PIN WAS INSERTED THROUGH THE FEMORAL NECK AT 125 DEG ANGLE TILL I T REACHED THE TIP OF THE SUB CHONDRAL BONE SEEN ON XRAY. AFTER REAMING, LAG SCREW WAS INSERTED MEASURING 110 MM. XRAYS SHOWED IT TO BE IN GOOD POSITION. THE LAG SCREW WAS LOCKED PROXIMALLY WITH A LOCKING MECHANISM. NEXT A DISTAL LOCKING SCREW WAS PLACED ACROSS THE DULCE AND WAS IN GOOD POSITION ON XRAY. THE TRACTION WAS RELEASED. THE WOUNDS WERE WASHED. THE DEEP FASCIA WAS REPAIRED WITH 0 VICRYL SUTURE, THE SUB CUTANEOUS LAYER WITH 2-0 VICRYL, AND THE SKIN WITH JUAQUIN. THE WOUNDS WERE WASHED AND THEN STERILE DRESSING WAS APPLIED. PATIENT WAS EXTUBATED AND SENT TO RECOVERY ROOM. Estimated Blood Loss 100 Urine Output 300 Complications No immediate complications Condition Stable Disposition PACU
[2023-05-09] MEDS: fentaNYL CITRATE INJ (*CRX) 100 MCG/2 ML VIAL 25 MCG IV PUSH ×8 (10:02→10:36)
[2023-05-09] MEDS: KETOROLAC 15 MG/ML VIAL (*BKC) IV PUSH (10:40)
[2023-05-09] MEDS: HYDROmorphone HCL INJ (*CRX) 1 MG/ML SYR 0.5 MG IV PUSH ×2 (10:56→11:01)
--- NOTE | 2023-05-09 11:25 | PC.NURSE ---
patient returned to room 252 from surgery. Report received from Kim RADER.
[2023-05-09] MEDS: ONDANSETRON INJ 4 MG/2 ML VIAL IV PUSH (12:03)
[2023-05-09] MEDS: SODIUM CHLORIDE 0.9% IV 1,000 ML 125 ML IV CONT (12:03)
[2023-05-09] MEDS: HYDROcodone/acetaminophen (*CRX) 7.5-325 MG TABLET 2 TAB PO ×2 (12:04→20:06)
[2023-05-09] MEDS: ASPIRIN 325 MG ENTERIC TABLET PO ×2 (13:56→22:30)
[2023-05-09] MEDS: FAMOTIDINE 20 MG TABLET PO ×2 (13:56→22:30)
[2023-05-09] MEDS: SENNA/DOCUSATE SODIUM TABLET 2 TAB PO ×2 (13:56→20:09)
[2023-05-09] MEDS: polyethylene glycoL 3350 17 GM POWD.PACK PO (13:57)
--- NOTE | 2023-05-09 14:35 | PC.NURSE ---
group underwriter reviewed assessment findings/charting done by student, Trip Grimm, and agree with them
[2023-05-09] MEDS: NITROFURANTOIN MONOHYD MACROCR 100 MG CAP PO (17:54)
--- NOTE | 2023-05-09 19:25 | PC.NURSE ---
Attempted to call Dr. Graham to notify him that patient's nance catheter was partially out and leaking and patient requested it to come out. Removed nance at 1700
[2023-05-10 01:13] VITALS: BP 118/64; PULSE 79; RESP 18; TEMP 36.1; O2SAT 96
[2023-05-10 05:13] VITALS: BP 119/59; PULSE 73; RESP 18; TEMP 36.6; O2SAT 97
[2023-05-10 05:58] LABS: Basophils Percent Auto 0.4 % (0.2-1.2); Eosinophils Absolute Auto 0.1 K/mm3 (0-0.3); Eosinophils Percent Auto 0.7 % (0-4.4); Hematocrit 31.7 % (37.0-47.0); Hemoglobin 10.6 g/dL (12.0-15.0); Immature Granulocyte Absolute 0.03 K/mm3 (0.00-0.031); Immature Granulocyte Percent A 0.4 % (0-0.5); Lymphocytes Absolute Auto 1.61 K/mm3 (0.9-3.2); Lymphocytes Percent Auto 22.2 % (18.3-44.2); Mean Corpuscular HGB Conc 33.4 g/dl (32-36); Mean Corpuscular Hemoglobin 35.7 pg (26-34); Mean Corpuscular Volume 106.7 fl (80-100); Mean Platelet Volume 11.2 fl (7.4-10.4); Monocytes Absolute Auto 0.9 K/mm3 (0.1-0.6); Neutrophils Absolute Auto 4.7 K/mm3 (1.3-6.7); Neutrophils Percent Auto 64.3 % (45.5-73.1); Platelet Count Result 218 k/mm3 (150-375); Red Blood Count 2.97 M/mm3 (4.2-5.4); Red Cell Distribution Width 11.6 % (11.5-14.5); White Blood Count 7.3 K/mm3 (4.5-10.0)
[2023-05-10 06:13] LABS: Alanine Aminotransferase 22 U/L (6-35); Albumin Level 3.4 g/dL (3.5-5.1); Alkaline Phosphatase 72 U/L (38-126); Anion Gap 3 mmol/L (8-16); Aspartate Amino Transferase 32 U/L (14-36); Bilirubin,Total 0.7 mg/dL (0.2-1.3); Blood Urea Nitrogen 9 mg/dL (7-17); Calcium 8.7 mg/dL (8.4-10.2); Carbon Dioxide 26 mmol/L (22-30); Chloride 104 mmol/L (98-107); Estimated CRCL calculation 167 ml/min; Estimated Glomerular Filt Rate > 60; Glucose 117 mg/dL (65-110); Potassium 3.5 mmol/L (3.4-5.0); Sodium 133 mmol/L (137-145)
[2023-05-10] MEDS: NITROFURANTOIN MONOHYD MACROCR 100 MG CAP PO ×2 (06:26→17:22)
[2023-05-10 08:20] VITALS: BP 134/78; PULSE 70; RESP 17; TEMP 37; O2SAT 99
[2023-05-10] MEDS: HYDROcodone/acetaminophen (*CRX) 7.5-325 MG TABLET 2 TAB PO ×2 (08:33→14:57)
[2023-05-10] MEDS: SENNA/DOCUSATE SODIUM TABLET 2 TAB PO ×2 (09:47→17:22)
[2023-05-10] MEDS: ASPIRIN 325 MG ENTERIC TABLET PO (09:47)
[2023-05-10] MEDS: CALCIUM/VITAMIN D 500 MG/5 MCG (200 I.U.) TABLET PO (09:47)
[2023-05-10] MEDS: FAMOTIDINE 20 MG TABLET PO (09:47)
[2023-05-10] MEDS: polyethylene glycoL 3350 17 GM POWD.PACK PO (09:47)
[2023-05-10 12:22] VITALS: BP 126/76; PULSE 84; RESP 16; TEMP 37.1; O2SAT 99
--- NOTE | 2023-05-10 15:30 | P.PNIM_ITS ---
Progress Note: A&P Assessment and Plan (1) Acute UTI: Code(s): N39.0 - Urinary tract infection, site not specified Status: Acute (2) Intertrochanteric fracture of left femur: Qualifiers: Encounter type: initial encounter Fracture alignment: nondisplaced Fracture type: closed Qualified Code(s): S72.145A - Nondisplaced intertrochanteric fracture of left femur, initial encounter for closed fracture Code(s): S72.142A - Displaced intertrochanteric fracture of left femur, initial encounter for closed fracture Status: Acute (3) Tobacco dependence: Code(s): F17.200 - Nicotine dependence, unspecified, uncomplicated Status: Acute (4) Fall from ground level: Code(s): W18.30XA - Fall on same level, unspecified, initial encounter Status: Acute Plan LT intertrochanteric femur fracture * Secondary to fall and severe OA * Ortho consulted * Pain management * NPO * surgery 05/08 * PPI * PT/OT post-op * DVT coverage post-op 05/08: * Post-op day one * up to chair * pull nance * PT/OT * DVT prophylactic 05/09: * Pot-op day 2 UTI * Urine cultures ECOLI * Continue IV hydration. * Monitor vital signs. * Rocephin switched to macrobid PO Vitamin Deficiency * Resume home vitamin D * Vitamin D WNL Smoking * smoking cessation education * nicotine patch daily * remove at night * recommend prescription for nicotine patches at discharge Code status: Full code per patient DVT prophylaxis: SCD until after surgery Stress ulcer prophylaxis: Protonix 40 daily PT/OT notes: Bedrest until after surgery or ortho recommendation Disposition: Patient admitted to the medical unit for treatment of LT femur fracture, treatment per ortho. Time Spent With Patient Time with patient: 15 - 25 minutes Subjective Date/time seen: 05/10/23 15:30 Interval history: Medical Record: Chief Complaint: fall Narrative: ?this is a 47-year-old female with? no significant past medical history, tobacco dependence.? Patient was brought to emergency room via EMS after having a fall at home while playing with son who is 13 years old mechanical fall ground level patient tripped over a rug unable to bear weight on left lower extremity tried to get up for an hour and half before calling EMS.? Here preliminary workup was significant for fracture of the hip? on the left side a urinalysis was significant for numerous WBCs present. patient is being admitted for further evaluation management and treatment. 05/07: Patient with some mild anxiety but reports pain is controlled, nance in place. Labs unremarkable and vitals stable plan is for surgery in the am. 05/08: Patient seen post-op up to chair and eating lunch tolerated procedure well. Incision clean dry and intact reports minimal pain at this time, PT/OT ordered. 05/09: Review of Systems Review of Systems: All systems reviewed & are unremarkable except as noted in HPI and below Exam Narrative: Physical Exam: * GENERAL: Alert and oriented x 3. No acute distress. Well-nourished. * EYES: EOMI. No scleral icterus. PERRLA. * HEENT: Moist mucous membranes. No cervical lymphadenopathy. * LUNGS: Clear to auscultation bilaterally. No accessory muscle use. * CARDIOVASCULAR: Regular rate and rhythm. No murmur. No JVD. S1-S2 * ABDOMEN: Soft, mild tenderness and non-distende
--- NOTE | 2023-05-10 15:30 | PM.IMPN ---
Progress Note: A&P Assessment and Plan (1) Acute UTI: Code(s): N39.0 - Urinary tract infection, site not specified Status: Acute (2) Intertrochanteric fracture of left femur: Qualifiers: Encounter type: initial encounter Fracture alignment: nondisplaced Fracture type: closed Qualified Code(s): S72.145A - Nondisplaced intertrochanteric fracture of left femur, initial encounter for closed fracture Code(s): S72.142A - Displaced intertrochanteric fracture of left femur, initial encounter for closed fracture Status: Acute (3) Tobacco dependence: Code(s): F17.200 - Nicotine dependence, unspecified, uncomplicated Status: Acute (4) Fall from ground level: Code(s): W18.30XA - Fall on same level, unspecified, initial encounter Status: Acute Plan LT intertrochanteric femur fracture Secondary to fall and severe OA Ortho consulted Pain management NPO surgery 05/08 PPI PT/OT post-op DVT coverage post-op 05/08: Post-op day one up to chair pull nance PT/OT DVT prophylactic 05/09: Pot-op day 2 UTI Urine cultures ECOLI Continue IV hydration. Monitor vital signs. Rocephin switched to macrobid PO Vitamin Deficiency Resume home vitamin D Vitamin D WNL Smoking smoking cessation education nicotine patch daily remove at night recommend prescription for nicotine patches at discharge Code status: Full code per patient DVT prophylaxis: SCD until after surgery Stress ulcer prophylaxis: Protonix 40 daily PT/OT notes: Bedrest until after surgery or ortho recommendation Disposition: Patient admitted to the medical unit for treatment of LT femur fracture, treatment per ortho. Time Spent With Patient Time with patient: 15 - 25 minutes Subjective Date/time seen: 05/10/23 15:30 Interval history: Medical Record: Chief Complaint: fall Narrative: ?this is a 47-year-old female with? no significant past medical history, tobacco dependence.? Patient was brought to emergency room via EMS after having a fall at home while playing with son who is 13 years old mechanical fall ground level patient tripped over a rug unable to bear weight on left lower extremity tried to get up for an hour and half before calling EMS.? Here preliminary workup was significant for fracture of the hip? on the left side a urinalysis was significant for numerous WBCs present. patient is being admitted for further evaluation management and treatment. 05/07: Patient with some mild anxiety but reports pain is controlled, nance in place. Labs unremarkable and vitals stable plan is for surgery in the am. 05/08: Patient seen post-op up to chair and eating lunch tolerated procedure well. Incision clean dry and intact reports minimal pain at this time, PT/OT ordered. 05/09: Review of Systems Review of Systems: All systems reviewed & are unremarkable except as noted in HPI and below Exam Narrative: Physical Exam: GENERAL: Alert and oriented x 3. No acute distress. Well-nourished. EYES: EOMI. No scleral icterus. PERRLA. HEENT: Moist mucous membranes. No cervical lymphadenopathy. LUNGS: Clear to auscultation bilaterally. No accessory muscle use. CARDIOVASCULAR: Regular rate and rhythm. No murmur. No JVD. S1-S2 ABDOMEN: Soft, mild tenderness and non-distended. No palpable masses. EXTREMITIES: Post-op incision clean dry intact neurovascular intact SKIN: No rashes or lesions. Skin warm, dry. NEUROLOGIC: No focal neurological deficits. CN II-XII grossly intact PSYCHIATRIC: Appropriate mood and affect. Good judgement and insight. No visual or auditory hallucinations. No suicidal or homicidal ideation. Objective Data Vital Signs Vital Signs: Vital Signs - 24 hr 05/09/23 17:13 05/09/23 19:58 05/09/23 20:00 Temperature 97.6 F 97.9 F Pulse Rate 78 76 Respiratory Rate 16 20 Blood Pressure 128/62 140/81 P
[2023-05-10 16:58] VITALS: BP 121/71; PULSE 77; RESP 17; TEMP 36.7; O2SAT 98
--- NOTE | 2023-05-10 17:15 | PM.PNORT ---
Progress Note: A&P Assessment and Plan (1) Intertrochanteric fracture of left femur: Qualifiers: Encounter type: initial encounter Fracture alignment: nondisplaced Fracture type: closed Qualified Code(s): S72.145A - Nondisplaced intertrochanteric fracture of left femur, initial encounter for closed fracture Code(s): S72.142A - Displaced intertrochanteric fracture of left femur, initial encounter for closed fracture Status: Acute Assessment and Plan: S/P LEFT IT FRACTURE DOING WELL S/P DULCE FIXATION. OK TO DC HOME, F/U IN 6 WEEKS. HOME NURSING AND PT TO SCHEDULE, ASA 325 MG BID X 6 WEEKS FOR DVT PROPHYLAXIS Subjective Subjective Date/Time Seen: 05/10/23 17:15 Interval history: POD 1 DOING WELL. PAIN CONTROLLED, GOOD PROGRESS WITH PT Exam Extrem: Other: VSS AFEBRILE DRESSING DRY NV INTACT NEG HOMANS SIGN CALF SOFT NON TENDER Objective Data Vital Signs Vital Signs: Vital Signs - 24 hr 05/09/23 19:58 05/09/23 20:00 05/10/23 01:13 Temperature 36.6 C 36.1 C L Pulse Rate 76 79 Respiratory Rate 20 18 Blood Pressure 140/81 118/64 Pulse Oximetry 97 96 Oxygen Delivery Room Air 05/10/23 05:13 05/10/23 08:20 05/10/23 12:22 Temperature 36.6 C 37.0 C 37.1 C Pulse Rate 73 70 84 Respiratory Rate 18 17 16 Blood Pressure 119/59 L 134/78 126/76 Pulse Oximetry 97 99 99 Oxygen Delivery 05/10/23 09:50 05/10/23 16:58 Temperature 36.7 C Pulse Rate 77 Respiratory Rate 17 Blood Pressure 121/71 Pulse Oximetry 98 Oxygen Delivery Room Air Intake/Output Intake/Output: Intake & Output 05/07/23 05/08/23 05/09/23 05/10/23 23:59 23:59 23:59 23:59 Intake Total 50 320 1494 1030 Output Total 945 7225 450 Balance 50 -330 -590 462 Meds/Results Medications: Active Medications Generic Name Dose Route Start Last Admin Trade Name Freq PRN Reason Stop Dose Admin Acetaminophen 650 mg 05/09/23 11:28 Acetaminophen 325 Mg Tablet PO Q6H PRN Mild Pain (1-3) or Fever Hydrocodone Bitart/Acetaminophen 1 tab 05/09/23 11:28 Hydrocodone/Acetaminophen (*Crx) 7.5-325 Mg Tablet PO Q3H PRN Pain Rated 4-6 Hydrocodone Bitart/Acetaminophen 2 tab 05/09/23 11:28 05/10/23 14:57 Hydrocodone/Acetaminophen (*Crx) 7.5-325 Mg Tablet PO 2 tab Q6H PRN Administration Pain Rated 7-10 Aspirin 325 mg 05/09/23 11:28 05/10/23 09:47 Aspirin 325 Mg Enteric Tablet PO 325 mg Q12HR TERESA Administration Calcium Carbonate 500 mg 05/10/23 09:00 05/10/23 09:47 Calcium/Vitamin D 500 Mg/5 Mcg (200 I.U.) Tablet PO 500 mg QAM TERESA Administration Diazepam 5 mg 05/09/23 11:28 Diazepam (*Crx) 5 Mg Tablet PO Q8H PRN Muscle Spasm Famotidine 20 mg 05/09/23 11:28 05/10/23 09:47 Famotidine 20 Mg Tablet PO 20 mg Q12HR TERESA Administration Hydroxyzine Pamoate 50 mg 05/09/23 11:28 Hydroxyzine Pamoate 25 Mg Capsule PO Q4H PRN Itching Naloxone HCl 0.1 mg 05/09/23 11:28 Naloxone Hcl 0.4 Mg/Ml Vial IV PUSH Q2M PRN Opiate Reversal Nitrofurantoin Macrocrystals 100 mg 05/09/23 18:00 05/10/23 06:26 Nitrofurantoin Monohyd Macrocr 100 Mg Cap PO 100 mg Q12H TERESA Administration Ondansetron HCl 4 mg 05/09/23 11:28 05/09/23 12:03 Ondansetron Inj 4 Mg/2 Ml Vial IV PUSH 4 mg Q4H PRN Administration Nausea And Vomiting Polyethylene Glycol 17 gm 05/09/23 11:28 05/10/23 09:47 Polyethylene Glycol 3350 17 Gm Powd.Pack PO 17 gm QAM COUNTS INCLUDE 234 BEDS AT THE [facility] Administration Senna/Docusate Sodium 2 tab 05/09/23 11:28 05/10/23 09:47 Senna/Docusate Sodium Tablet PO 2 tab BID TERESA Administration Radiology Results: ITS Impressions Hip/Pelvis X-Ray 05/07/23 19:22 IMPRESSION: 1. Comminuted intertrochanteric fracture of the left femur. 2. Severe left hip osteoarthritis. Chest X-Ray 05/07/23 19:28 IMPRESSION: 1. No acute cardiopulmonary abnormality. Intraoperative X-
--- NOTE | 2023-05-10 18:27 | PM.DS ---
DS: Admitting Diagnosis Discharge Date 05/10/2023 Admitting Diagnosis Nondisplaced intertrochanteric fracture of the LT femur/UTI DS: Discharge Diagnosis Discharge Diagnosis (1) Acute UTI: Code(s): N39.0 - Urinary tract infection, site not specified Status: Acute (2) Intertrochanteric fracture of left femur: Qualifiers: Encounter type: initial encounter Fracture alignment: nondisplaced Fracture type: closed Qualified Code(s): S72.145A - Nondisplaced intertrochanteric fracture of left femur, initial encounter for closed fracture Code(s): S72.142A - Displaced intertrochanteric fracture of left femur, initial encounter for closed fracture Status: Acute (3) Tobacco dependence: Code(s): F17.200 - Nicotine dependence, unspecified, uncomplicated Status: Acute (4) Fall from ground level: Code(s): W18.30XA - Fall on same level, unspecified, initial encounter Status: Acute Assessment and Plan: Plan LT intertrochanteric femur fracture Secondary to fall and severe OA Ortho consulted Pain management NPO surgery 05/08 PPI PT/OT post-op DVT coverage post-op05/08: Post-op day? one up to chair pull nance PT/OT DVT prophylactic UTI ?Urine cultures ECOLI Continue IV hydration.? Monitor vital signs.? Rocephin switched to macrobid PO Vitamin Deficiency Resume home vitamin D Vitamin D WNL Smoking ?smoking cessation education nicotine patch daily remove at night recommend prescription for nicotine patches at discharge Disposition: Patient discharged to home with home health will follow-up with orthopedic DS: Summary Hospital Course Hospital Course: Medical Record: Chief Complaint: fall Narrative: ?this is a 47-year-old female with? no significant past medical history, tobacco dependence.? Patient was brought to emergency room via EMS after having a fall at home while playing with son who is 13 years old mechanical fall ground level patient tripped over a rug unable to bear weight on left lower extremity tried to get up for an hour and half before calling EMS.? Here preliminary workup was significant for fracture of the hip? on the left side a urinalysis was significant for numerous WBCs present. patient is being admitted for further evaluation management and treatment. 05/07: Patient with some mild anxiety but reports pain is controlled, nance in place.? Labs unremarkable and vitals stable plan is for surgery in the am. 3/24: Patient seen post-op up to chair and eating lunch tolerated procedure well.? Incision clean dry and intact reports minimal pain at this time, PT/OT ordered. 05/09: DISCHARGED Patient doing well with PT/OT minimal assist with walker. Cleared by orthopedics to discharge to home with home health. Patient also requesting to go home reports she already has walker at home. Labs unremarkable and vitals stable. Did encourage smoking cessation. Status at Discharge Functional status at discharge: uses cane/walker Overall status at discharge: patient is progressing back to baseline Time Spent with Patient Time attestation: Total time spent providing and/or coordinating discharge services: Time spent: Less than 30 minutes Exam Narrative: Physical Exam: GENERAL: Alert and oriented x 3. No acute distress. Well-nourished. EYES: EOMI. No scleral icterus. PERRLA. HEENT: Moist mucous membranes. No cervical lymphadenopathy. LUNGS: Clear to auscultation bilaterally. No accessory muscle use. CARDIOVASCULAR: Regular rate and rhythm. No murmur. No JVD. S1-S2 ABDOMEN: Soft, mild tenderness and non-distended. No palpable masses. EXTREMITIES: Post-op incision clean dry intact neurovascular intact SKIN: No rashes or lesions. Skin warm, dry. NEUROLOGIC: No focal neurological deficits. CN II-XII grossly intact PSYCHIATRIC: Appropriate mood and affect. Good judgement and insight. No visual or auditory halluci
== END 2023-05-10 19:00 | disposition home health service (06) | DRG 308 ==
LOC: ANHED 20:21 → ANH2MED 23:44
PROVIDERS: Orthopaedic Surgery; Admitting Provider Internal Medicine; Emergency Provider Physician Assistant; PCP Nurse Practitioner Family; Visit Provider Nurse Practitioner Family
PROC: 0QS736Z Reposition Left Upper Femur with Intramedullary Internal Fixation Device, Percutaneous Approach (ICD-10-PCS; CPT 27245; principal; 2023-05-09 08:30)
DX: S72.142A Displaced intertrochanteric fracture of left femur, initial encounter for closed fracture (principal); N39.0 Urinary tract infection, site not specified; B96.20 Unspecified Escherichia coli [E. coli] as the cause of diseases classified elsewhere; E55.9 Vitamin D deficiency, unspecified; F17.210 Nicotine dependence, cigarettes, uncomplicated; M16.12 Unilateral primary osteoarthritis, left hip; W18.30XA Fall on same level, unspecified, initial encounter; Z28.21 Immunization not carried out because of patient refusal
CPT/HCPCS: 36415; 71045; 73502; 80053; 81001; 82306; 85025; 85610; 85730; 86850; 86900; 86901; 87040; 87077; 87086; 87088; 87186; 93005; 96365; 96374; 96375; 96376; 97110; 97116; 97161; 97165; 97530; 97535; 99199; 99285; A9270; C1713; G0378; J0690; J0696; J1100; J1170; J1885; J2250; J2270; J2405; J2704; J3010; J7030; J7120